=== PATIENT | female | born 1950 | race Caucasian/White ===

== ENCOUNTER 2025-01-25 11:06 | Outpatient (CLI) | payer MEDICARE | END 2025-01-25 11:07 | disposition home or self-care (01) | LOC: CSHRAD 11:06 | PROVIDERS: ATTEND Internal Medicine Rheumatology | DX: M54.2 Cervicalgia (principal); R20.2 Paresthesia of skin; M47.812 Spondylosis without myelopathy or radiculopathy, cervical region | CPT/HCPCS: 72040 ==